=== PATIENT | female | born 1955 | race African-American/Black ===

== ENCOUNTER 2021-10-13 17:21 | Inpatient (IN) | payer MEDICAID ==
[~2021-10-13] VITALS: Ht 165.1 cm; Wt 83.2 kg
[2021-10-13] MEDS ORDERED: METHYLPREDNISOLONE SOD SUCC 125 MG/2 ML VIAL IV STA (17:40)
[2021-10-13] MEDS ORDERED: ALBUTEROL (0.083%) 2.5MG/3ML NEB HHN STA (17:40)
[2021-10-13] MEDS ORDERED: IPRATROPIUM BROMIDE (0.02%) 0.5MG/2.5ML NEB HHN STA (17:40)
[2021-10-13] MEDS ORDERED: FUROSEMIDE 40MG/4ML VIAL IVP ONE (17:45)
[2021-10-13] MEDS ORDERED: NITROGLYCERIN OINT 1GM/INCH UDPKT TD ONE (17:45)
[2021-10-13] MEDS ORDERED: ASPIRIN 81MG TABLET PO ONE (18:30)
[2021-10-13 18:34] LABS: BASOPHILS % 0.2 % (0.0-2.0); EOSINOPHILS % 0.4 % (0.0-5.0); HEMATOCRIT. 43.9 % (36.0-48.0); HEMOGLOBIN. 14.4 g/dL (12.0-16.0); LYMPHOCYTES % 23.3 % (20.0-50.0); MEAN CORPUSCULAR HEMOGLOBIN 28.1 pg (28.0-32.0); MEAN CORPUSCULAR VOLUME 85.8 fL (81.0-99.0); MEAN PLATELET VOLUME 9.6 fl (7.4-10.4); MONOCYTES % 4.8 % (2.0-8.0); NEUTROPHILS % 71.3 % (40.0-76.0); PLATELET 337 x1000/uL (130-400); RED BLOOD CELL COUNT 5.12 mill/uL (4.2-5.4); RED CELL DISTRIBUTION WIDTH 15.3 % (11.6-14.6)
[2021-10-13 18:42] LABS: CHLORIDE 112 mEq/L (98-107)
[2021-10-13 18:51] LABS: CLARITY URINE CLEAR (CLEAR); COLOR URINE YELLOW (YELLOW); KETONES URINE NEGATIVE (NEGATIVE); LEUKOCYTE ESTERASE URINE TRACE (NEGATIVE); NITRITE URINE NEGATIVE (NEGATIVE); OCCULT BLOOD URINE TRACE (NEGATIVE); PH URINE 6.5 (4.5-8.0); PROTEIN URINE NEGATIVE (NEGATIVE); SPECIFIC GRAVITY URINE 1.008 (1.005-1.030); UROBILINOGEN URINE 0.2 E.U./dL (0.2-1.0)
[2021-10-13 19:06] LABS: INR 0.9; PROTHROMBIN TIME 9.8 sec (9.6-11.0)
[2021-10-13] MEDS ORDERED: LEVOFLOXACIN 750MG PREMIX 150 ML IV ONE (20:00)
[2021-10-13] MEDS ORDERED: VANCOMYCIN 1G PREMIX 200 ML IV SCH (20:00)
[2021-10-13 23:00] VITALS: BP 175/78
[2021-10-13 23:16] VITALS: BP 175/78
[2021-10-14] VITALS (12 sets, daily range): BP systolic 122–177; BP diastolic 41–96
[2021-10-14] MEDS ORDERED: ONDANSETRON HCL 4MG/2ML INJ IV PRN (00:15)
[2021-10-14] MEDS: IPRATROPIUM/ALBUTEROL 0.5-3(2.5)MG/3ML NEB HHN SCH ×5 (05:27→19:54)
[2021-10-14] MEDS ORDERED: HYDRALAZINE HCL 50MG TABLET PO SCH (06:00)
[2021-10-14 07:50] LABS: HEMATOCRIT. 39.8 % (36.0-48.0); HEMOGLOBIN. 12.9 g/dL (12.0-16.0); MEAN CORPUSCULAR HEMOGLOBIN 27.6 pg (28.0-32.0); MEAN CORPUSCULAR VOLUME 84.9 fL (81.0-99.0); MEAN PLATELET VOLUME 9.7 fl (7.4-10.4); PLATELET 314 x1000/uL (130-400); RED BLOOD CELL COUNT 4.69 mill/uL (4.2-5.4); RED CELL DISTRIBUTION WIDTH 14.9 % (11.6-14.6)
[2021-10-14 08:01] LABS: CHLORIDE 108 mEq/L (98-107)
[2021-10-14 08:07] LABS: HDL CHOLESTEROL 53 mg/dL (40-59); LDL CHOLESTEROL 97 mg/dL (5-100)
[2021-10-14 08:22] LABS: BG CARBOXYHEMOGLOBIN 0.5 % (0.5-1.5); BG DEOXYHEMOGLOBIN 2.5 % (0.0-5.0); BG FRACTION INSPIRED OXYGEN 36; BG HCO3 ACT 24.1 mmol/L (22.0-26.0); BG METHEMOGLOBIN 0.3 % (0.0-1.5); BG OXYGEN SATURATION 97.5 % (92.0-98.5); BG OXYHEMOGLOBIN 96.7 % (94.0-97.0); BG PCO2 33.9 mmHg (35.0-45.0); BG PH 7.469 (7.350-7.450); BG SAMPLE SITE RIGHT RADIAL; BG TOTAL HEMOGLOBIN 14.3 g/dL (12.0-18.0); BG VENT MODE NASAL CANNULA
[2021-10-14] MEDS ORDERED: FUROSEMIDE 40MG/4ML VIAL IVP SCH (09:00)
[2021-10-14] MEDS: FAMOTIDINE 20MG TABLET PO SCH ×2 (09:48→17:57)
[2021-10-14] MEDS: ASPIRIN 81MG TABLET PO SCH (09:48)
[2021-10-14] MEDS: LISINOPRIL 20MG TABLET PO SCH (09:49)
[2021-10-14] MEDS: ENOXAPARIN 40MG/0.4ML SYR SUBCUT SCH (09:50)
[2021-10-14] MEDS: METHYLPREDNISOLONE SOD SUCC 40 MG/ML VIAL IV SCH ×2 (13:27→21:07)
[2021-10-14] MEDS: HYDRALAZINE HCL 100MG TABLET PO SCH ×2 (13:28→21:07)
[2021-10-14] MEDS ORDERED: TOPUD MT (13:44)
[2021-10-14] MEDS ORDERED: CARV3.1242 MT (13:44)
[2021-10-14] MEDS ORDERED: FAMO-287 MT (13:44)
[2021-10-14] MEDS ORDERED: LISI20TA31 PO (13:44)
[2021-10-14] MEDS ORDERED: FURO-151 PO (13:49)
[2021-10-14] MEDS ORDERED: ALLO100T57 MT (13:49)
[2021-10-14] MEDS ORDERED: SIMV10TA2 MT (13:49)
[2021-10-14] MEDS ORDERED: LORA10CA PO (13:49)
[2021-10-14] MEDS ORDERED: OMEP20CA14 PO (13:49)
[2021-10-14] MEDS ORDERED: FAMO-135 MT (13:50)
[2021-10-14 15:28] LABS: PLATELET ESTIMATE NORMAL
[2021-10-14] MEDS: BUDESONIDE 0.5MG/2ML NEB HHN SCH (15:56)
[2021-10-14] MEDS: FUROSEMIDE 40MG/4ML VIAL IVP SCH (17:57)
[2021-10-15] VITALS (10 sets, daily range): BP systolic 124–148; BP diastolic 54–81
[2021-10-15] MEDS: IPRATROPIUM/ALBUTEROL 0.5-3(2.5)MG/3ML NEB HHN SCH ×4 (00:06→12:34)
[2021-10-15] MEDS: BUDESONIDE 0.5MG/2ML NEB HHN SCH ×2 (04:01→08:46)
[2021-10-15] MEDS: METHYLPREDNISOLONE SOD SUCC 40 MG/ML VIAL IV SCH (06:05)
[2021-10-15] MEDS: HYDRALAZINE HCL 100MG TABLET PO SCH (06:07)
[2021-10-15] MEDS ORDERED: HYDR100T26 PO (07:42)
[2021-10-15] MEDS ORDERED: P20 MT (07:42)
[2021-10-15] MEDS ORDERED: FURO-151 MT (07:42)
[2021-10-15 08:38] LABS: *AMPHETAMINES SCREEN URINE NEGATIVE (NEGATIVE); *BARBITURATES SCREEN URINE NEGATIVE (NEGATIVE); *BENZODIAZEPINES SCREEN URINE NEGATIVE (NEGATIVE); *COCAINE SCREEN URINE PRESUMTIVE POSITIVE (NEGATIVE); CANNABINOID URINE SCREEN NEGATIVE (NEGATIVE); METHADONE URINE SCREEN NEGATIVE (NEGATIVE); OPIATES URINE SCREEN NEGATIVE (NEGATIVE); PHENCYCLIDINE URINE SCREEN NEGATIVE (NEGATIVE)
[2021-10-15] MEDS: LISINOPRIL 20MG TABLET PO SCH (09:57)
[2021-10-15] MEDS: FAMOTIDINE 20MG TABLET PO SCH (09:57)
[2021-10-15] MEDS: FUROSEMIDE 40MG/4ML VIAL IVP SCH (09:57)
[2021-10-15] MEDS: ASPIRIN 81MG TABLET PO SCH (09:57)
[2021-10-15] MEDS: ENOXAPARIN 40MG/0.4ML SYR SUBCUT SCH (09:57)
== END 2021-10-15 15:00 | disposition home or self-care (01) | DRG 194 ==
LOC: ER 17:21 → EDBEDREQ 19:01 → ENRESERV 21:54 → 3WST 22:45
PROVIDERS: ADMIT Internal Medicine; ATTEND Internal Medicine
DX: I11.0 Hypertensive heart disease with heart failure (principal); J96.00 Acute respiratory failure, unspecified whether with hypoxia or hypercapnia; E44.1 Mild protein-calorie malnutrition; J44.1 Chronic obstructive pulmonary disease with (acute) exacerbation; I50.33 Acute on chronic diastolic (congestive) heart failure; E87.8 Other disorders of electrolyte and fluid balance, not elsewhere classified; F17.210 Nicotine dependence, cigarettes, uncomplicated; Z20.822 Contact with and (suspected) exposure to COVID-19; Z88.0 Allergy status to penicillin; Z68.30 Body mass index [BMI] 30.0-30.9, adult; Z71.6 Tobacco abuse counseling; Z53.20 Procedure and treatment not carried out because of patient's decision for unspecified reasons
CPT/HCPCS: 36415; 36600; 71045; 80048; 80053; 80061; 80305; 81003; 82375; 82805; 83605; 83880; 84145; 84484; 85025; 87426; 93005; 93306; 94640; 99291; J1650; J1940; J1956; J2920; J2930; J3370; J7626